=== PATIENT | male | born 1950 | race Caucasian/White ===

== ENCOUNTER → 2017-06-16 | Outpatient (CLI) | payer MEDICARE, OTHER | END | disposition home or self-care (01) | LOC: Rad HDHVI 13:06 | PROVIDERS: ATTEND Internal Medicine Cardiovascular Disease | DX: I42.9 Cardiomyopathy, unspecified (principal) | CPT/HCPCS: 93306 ==

== ENCOUNTER 2019-10-14 08:29 | Inpatient (IN) | payer MEDICARE, MEDICAID ==
[2019-10-14] VITALS (51 sets, daily range): BP systolic 76–153; BP diastolic 32–82
[~2019-10-14] VITALS: Ht 177.8 cm; Wt 92.9 kg
[2019-10-14] MEDS ORDERED: SODIUM CHLORIDE 0.9% 1,000 ML IV ONE ×3 (08:35→10:00)
[2019-10-14] MEDS ORDERED: PIPERACILLIN-TAZOB 3.375GM 100 ML IV ONE (08:45)
[2019-10-14] MEDS ORDERED: MIDAZOLAM DRIP 50 mg/50mL 50 ML IV ONE (08:59)
[2019-10-14] MEDS ORDERED: SUCCINYLCHOLINE CHLORIDE 20 MG/ML 10ML VIAL IV ONE (09:00)
[2019-10-14] MEDS ORDERED: ETOMIDATE (2MG/ML) 20ML VIAL IV ONE (09:00)
[2019-10-14] MEDS: MIDAZOLAM DRIP 50 mg/50mL 50 ML IV SCH (09:30)
[2019-10-14] MEDS ORDERED: NOREPINEPHRINE 8 MG/250ML KIT 250 ML IV ONE (09:38)
[2019-10-14] MEDS ORDERED: SODIUM CHLORIDE 0.9% 500 ML IV ONE (10:00)
[2019-10-14 10:02] LABS: Basophils # (auto) 0 uL; Eosinophils # (auto) 0 uL; Red Cell Distribution Width 17.1 % (11.8-14.3)
[2019-10-14 10:05] LABS: Basophils % (auto) 0.3 % (0.0-2.0); Hematocrit 45.2 % (41.0-53.0); Hemoglobin 14.2 g/dL (13.5-17.5); Lymphocytes # (auto) 0.4 uL; Lymphocytes % (auto) 4.9 % (10.0-50.0); Mean Corpuscular Hemoglobin 25.7 pg (28.0-32.0); Mean Corpuscular Hgb Conc. 31.5 g/dL (32.0-36.0); Mean Corpuscular Volume 81.5 fL (80.0-100.0); Monocytes # (auto) 0.9 uL; Monocytes % (auto) 12.1 % (0.0-12.0); Neutrophils # (auto) 6.4 uL; Neutrophils % (auto) 82.7 % (37.0-80.0); Nucleated Red Blood Cells % 0.5 %; Platelet Count (auto) 157 10^3/uL (140-450); Red Blood Cells 5.54 10^6/uL (4.5-5.90); White Blood Cell 7.7 10^3/uL (4.4-10.8)
[2019-10-14 10:14] LABS: Albumin 3.6 g/dL (3.4-5.0); Anion Gap 28 (5-15); Calcium 6.5 mg/dL (8.5-10.1); Chloride 82 mmol/L (98-107); Glucose 93 mg/dL (74-106)
[2019-10-14 10:15] LABS: INR 1.22 (0.9-1.15); Partial Thromboplastin Time 38.3 sec (23.64-32.05)
[2019-10-14 10:23] LABS: Alanine Aminotransferase 33 U/L (16-61); Alkaline Phosphatase 102 U/L (45-117); Aspartate Aminotransferase 42 U/L (15-37); BUN/Creatinine Ratio 7.2; Bilirubin, Total 0.5 mg/dL (0.2-1.0); GFR African American 3 mL/min; GFR Non-African American 2 mL/min; Total Protein 9.1 g/dL (6.4-8.2)
[2019-10-14] MEDS: NOREPINEPHRINE 8 MG/250ML KIT 250 ML IV SCH ×2 (10:23→21:31)
[2019-10-14 10:41] LABS: Blood Urea Nitrogen 150 mg/dL (7-18); Carbon Dioxide 7 mmol/L (21-32); Potassium 7.9 mmol/L (3.5-5.1); Sodium 117 mmol/L (136-145)
[2019-10-14 10:42] LABS: Urine Amorphous Crystal FEW /hpf (None Seen); Urine Bacteria NONE SEEN /hpf (None Seen); Urine Blood 2+ /uL (Negative); Urine Specific Gravity 1.022 (1.001-1.035); Urine WBC 10 /hpf (0 - 3)
[2019-10-14] MEDS ORDERED: InsuLIN REG 1unit/0.01ml Soln (100units/ml) IV ONE ×3 (10:45→15:00)
[2019-10-14] MEDS ORDERED: SODIUM BICARBONATE 8.4% INJ 50ML SYRINGE IV ONE (10:45)
[2019-10-14] MEDS ORDERED: DEXTROSE (50%) 50ML SYRG IV ONE ×3 (10:45→15:00)
[2019-10-14] MEDS ORDERED: ALBUTEROL SULF 2.5 MG/0.5ML(0.5%) NEB SOLN NEB ONE ×2 (10:45→11:15)
[2019-10-14] MEDS ORDERED: CALCIUM GLUC 4.65meq/50ml D5AE 50 ML IV ONE ×2 (10:45→14:45)
[2019-10-14] MEDS ORDERED: SODIUM CHL 3% 500 ML IV ONE (10:45)
[2019-10-14] MEDS ORDERED: SODIUM ZIRCONIUM CYCL 10 GM PAK PO SCH (10:54)
[2019-10-14] MEDS ORDERED: NITROGLYCERIN 0.4 MG SL TAB SL PRN (11:15)
[2019-10-14] MEDS ORDERED: MORPHINE SULF INJ 2 MG/ML SYRINGE 1ML IV PRN (11:15)
[2019-10-14] MEDS ORDERED: SODIUM BICARBONATE 50ML VIAL 150 ML in D5W 5% 1,000 ML IV ONE (11:15)
[2019-10-14] MEDS ORDERED: SODIUM BICARBONATE 50ML VIAL 150 ML in D5W 5% 1,000 ML IV SCH (12:00)
[2019-10-14 12:05] LABS: Uric Acid 13.9 mg/dL (3.5-7.2)
[2019-10-14 12:53] LABS: Albumin 3.8 g/dL (3.4-5.0); Bilirubin, Total 0.6 mg/dL (0.2-1.0); Calcium 6.5 mg/dL (8.5-10.1); Total Protein 8.7 g/dL (6.4-8.2)
[2019-10-14 13:03] LABS: Protein, Urine 204.2 mg/dL (0.0-11.9)
[2019-10-14 13:15] LABS: BUN/Creatinine Ratio 7.5; Potassium 8.2 mmol/L (3.5-5.1)
[2019-10-14 13:16] LABS: Phosphorus 22.8 mg/dL (2.5-4.90)
[2019-10-14] MEDS: DOPamine 1600MCG/ML D5W 250 ML IV SCH (13:40)
[2019-10-14 13:43] LABS: Hepatitis B Surface Antigen Negative (Negative); Hepatitis C Antibody Negative (Negative)
[2019-10-14] MEDS: FAMOTIDINE (10MG/ML) 2ML VL IV SCH (14:29)
[2019-10-14] MEDS ORDERED: SODIUM BICARBONATE 8.4 % INJ 50ML VIAL IV ONE (14:45)
[2019-10-14] MEDS: SODIUM BICARBONATE 50ML VIAL 150 ML in D5W 5% 1,000 ML IV SCH ×2 (15:00→19:21)
[2019-10-14] MEDS ORDERED: BUMETANIDE 2.5mg/10ml (0.25 mg/ml) INJ IV ONE (15:00)
[2019-10-14 17:55] LABS: Potassium 4.8 mmol/L (3.5-5.1)
[2019-10-14 17:57] LABS: BUN/Creatinine Ratio 8.1
[2019-10-14] MEDS ORDERED: CALCIUM ACETATE 667 MG CAP PO SCH (18:00)
[2019-10-14] MEDS ORDERED: SODIUM CHL 0.9% 1000 ML BAG XX ONE (18:00)
[2019-10-14] MEDS ORDERED: PHENYLEPHRINE INJ 20 MG in SODIUM CHL 0.9% 250 ML IV SCH (18:20)
[2019-10-14] MEDS ORDERED: PHENYLEPHRINE IV 250 ML IV ONE (18:41)
[2019-10-14] MEDS: IPRATROPIUM BROM 0.5 MG/2.5ML INH SOL NEB SCH (18:57)
[2019-10-14] MEDS: ALBUTEROL SULF 2.5 MG/0.5ML(0.5%) NEB SOLN NEB SCH (18:57)
[2019-10-14] MEDS: EPINEPHrine HCL 250 ML IV SCH (19:22)
[2019-10-14] MEDS: PHENYLEPHRINE INJ 20 MG in D5W 5% 250 ML IV SCH (21:31)
[2019-10-14] MEDS: SODIUM ZIRCONIUM CYCL 10 GM PAK PO SCH (22:00)
[2019-10-15] VITALS (96 sets, daily range): BP systolic 80–153; BP diastolic 49–79
[2019-10-15] MEDS: ALBUTEROL SULF 2.5 MG/0.5ML(0.5%) NEB SOLN NEB SCH ×4 (00:11→18:33)
[2019-10-15] MEDS: IPRATROPIUM BROM 0.5 MG/2.5ML INH SOL NEB SCH ×4 (00:11→18:33)
[2019-10-15] MEDS ORDERED: PHENYLEPHRINE IV 250 ML IV ONE ×2 (01:24→08:17)
[2019-10-15] MEDS: PHENYLEPHRINE INJ 20 MG in D5W 5% 250 ML IV SCH ×3 (01:48→21:00)
[2019-10-15] MEDS: NOREPINEPHRINE 8 MG/250ML KIT 250 ML IV SCH ×2 (01:49→23:50)
[2019-10-15 03:48] LABS: Hematocrit 35.8 % (41.0-53.0); Mean Corpuscular Hemoglobin 25.9 pg (28.0-32.0); Mean Corpuscular Hgb Conc. 33.4 g/dL (32.0-36.0); Mean Corpuscular Volume 77.4 fL (80.0-100.0); Platelet Count (auto) 113 10^3/uL (140-450); Red Blood Cells 4.62 10^6/uL (4.5-5.90); Red Cell Distribution Width 15.9 % (11.8-14.3); White Blood Cell 3.2 10^3/uL (4.4-10.8)
[2019-10-15 04:08] LABS: Potassium 3.7 mmol/L (3.5-5.1)
[2019-10-15 04:13] LABS: BUN/Creatinine Ratio 7.3
[2019-10-15 04:35] LABS: Basophils % (manual) 0 (0.0-2.0); Blast Cells 0; Eosinophils % (manual) 0 (0-7); Myelocytes % 0; Promyelocytes % 0; Reactive Lymphocytes 0
[2019-10-15 04:38] LABS: Calcium 5.4 mg/dL (8.5-10.1)
[2019-10-15] MEDS: SODIUM ZIRCONIUM CYCL 10 GM PAK PO SCH ×2 (05:42→13:59)
[2019-10-15] MEDS: MIDAZOLAM DRIP 50 mg/50mL 50 ML IV SCH (05:43)
[2019-10-15] MEDS: SODIUM BICARBONATE 50ML VIAL 150 ML in D5W 5% 1,000 ML IV SCH ×5 (06:14→18:20)
[2019-10-15 06:37] LABS: Band Neutrophils % (manual) 12; Lymphocytes % (manual) 16 (10.0-50.0)
[2019-10-15 06:38] LABS: Metamyelocytes % 1; Monocytes % (manual) 35 (0-12)
[2019-10-15] MEDS ORDERED: CALCIUM ACETATE 667 MG CAP NG SCH (10:15)
[2019-10-15] MEDS ORDERED: CALCIUM GLUC 4.65meq/50ml D5AE 50 ML IV ONE ×4 (10:15→12:30)
[2019-10-15] MEDS: FAMOTIDINE (10MG/ML) 2ML VL IV SCH (10:49)
[2019-10-15] MEDS: CALCIUM ACETATE 667 MG CAP NG SCH ×3 (10:49→21:19)
[2019-10-15] MEDS ORDERED: cefTRIAXone 1GM/50ML D5W 50 ML IV ONE (12:00)
[2019-10-15 12:33] LABS: Alcohol, Urine < 3.0 mg/dL (0-5); Amphetamine Screen, Urine NEGATIVE (NEGATIVE); Barbiturate Scree,Urine NEGATIVE (NEGATIVE); Benzodiazephine Screen, Urine POSITIVE (NEGATIVE); Cannabinoid Screen, Urine NEGATIVE (NEGATIVE); Cocaine Screen, Urine NEGATIVE (NEGATIVE)
[2019-10-15 12:40] LABS: Opiate Scree,Urine NEGATIVE (NEGATIVE); Phencyclidine Screen, Urine NEGATIVE (NEGATIVE)
[2019-10-15] MEDS ORDERED: AZITHROMYCIN 500MG/ 250ML 250 ML IV ONE (13:00)
[2019-10-15] MEDS: fentaNYL Drip 2500mCg/250mlNS 250 ML IV SCH ×2 (13:22→21:38)
[2019-10-15] MEDS: PROPOFOL 100 ML IV SCH (13:22)
[2019-10-15 14:42] LABS: BUN/Creatinine Ratio 7.6
[2019-10-15 14:54] LABS: Calcium 5.4 mg/dL (8.5-10.1)
[2019-10-15] MEDS: POTASSIUM CHL 20MEQ/100ML 100 ML IV SCH ×2 (15:59→18:02)
[2019-10-15] MEDS: EPINEPHrine HCL 250 ML IV SCH (19:22)
[2019-10-15] MEDS: DOPamine 1600MCG/ML D5W 250 ML IV SCH ×2 (19:54→23:50)
[2019-10-15] MEDS: HEPARIN SODIUM (PORCINE) 5000 UNITS/ML 1ML VIAL SC SCH (21:20)
[2019-10-16] VITALS (100 sets, daily range): BP systolic 71–258; BP diastolic 44–200
[2019-10-16] MEDS: IPRATROPIUM BROM 0.5 MG/2.5ML INH SOL NEB SCH ×4 (00:14→19:03)
[2019-10-16] MEDS: ALBUTEROL SULF 2.5 MG/0.5ML(0.5%) NEB SOLN NEB SCH ×4 (00:15→19:03)
[2019-10-16] MEDS: POTASSIUM CHL 20MEQ/100ML 100 ML IV SCH ×6 (00:59→16:45)
[2019-10-16] MEDS: SODIUM BICARBONATE 50ML VIAL 150 ML in D5W 5% 1,000 ML IV SCH (02:17)
[2019-10-16] MEDS: PHENYLEPHRINE INJ 20 MG in D5W 5% 250 ML IV SCH ×3 (05:20→22:00)
[2019-10-16] MEDS: CALCIUM ACETATE 667 MG CAP NG SCH ×4 (05:38→22:00)
[2019-10-16] MEDS: NOREPINEPHRINE 8 MG/250ML KIT 250 ML IV SCH ×2 (05:59→12:51)
[2019-10-16 07:07] LABS: Basophils # (auto) 0 uL; Eosinophils # (auto) 0 uL; Hematocrit 31.9 % (41.0-53.0); Lymphocytes % (auto) 4.8 % (10.0-50.0); Neutrophils # (auto) 7.9 uL; Neutrophils % (auto) 84.2 % (37.0-80.0); Nucleated Red Blood Cells % 0.1 %; Red Cell Distribution Width 15.1 % (11.8-14.3)
[2019-10-16 07:10] LABS: Hemoglobin 10.7 g/dL (13.5-17.5); Lymphocytes # (auto) 0.5 uL; Mean Corpuscular Hgb Conc. 33.7 g/dL (32.0-36.0); Mean Corpuscular Volume 77.1 fL (80.0-100.0); Platelet Count (auto) 96 10^3/uL (140-450); Red Blood Cells 4.13 10^6/uL (4.5-5.90); White Blood Cell 9.4 10^3/uL (4.4-10.8)
[2019-10-16 07:15] LABS: Magnesium 1.7 mg/dL (1.6-2.6); Potassium 3.1 mmol/L (3.5-5.1)
[2019-10-16 07:17] LABS: Bilirubin, Total 0.5 mg/dL (0.2-1.0); Phosphorus 4.2 mg/dL (2.5-4.90); Total Protein 5.9 g/dL (6.4-8.2)
[2019-10-16 07:34] LABS: Calcium 5.9 mg/dL (8.5-10.1)
[2019-10-16] MEDS ORDERED: D5W/SOD CHLO 0.9% 1,000 ML IV ONE (08:15)
[2019-10-16] MEDS ORDERED: CALCIUM CHL 100MG/ML 1,000 MG in D5W 5% 100 ML IV ONE ×4 (08:15)
[2019-10-16] MEDS ORDERED: cefTRIAXone 1GM/50ML D5W 50 ML IV SCH (09:00)
[2019-10-16] MEDS: MAGNESIUM SULFATE 1GM/100ML 100 ML IV SCH ×2 (09:03→09:50)
[2019-10-16] MEDS: D5W/SOD CHLO 0.9% 1,000 ML IV SCH ×3 (09:30→18:26)
[2019-10-16] MEDS: MIDAZOLAM DRIP 50 mg/50mL 50 ML IV SCH (09:33)
[2019-10-16] MEDS: FAMOTIDINE (10MG/ML) 2ML VL IV SCH (09:50)
[2019-10-16] MEDS ORDERED: AZITHROMYCIN 500MG/ 250ML 250 ML IV SCH (10:00)
[2019-10-16 10:29] LABS: Uric Acid 7.5 mg/dL (3.5-7.2)
[2019-10-16] MEDS: CHOLECALCIFEROL (VITD3) 1,000IU=25mCg TAB NG SCH (11:02)
[2019-10-16] MEDS: HEPARIN SODIUM (PORCINE) 5000 UNITS/ML 1ML VIAL SC SCH ×2 (12:04→22:35)
[2019-10-16] MEDS ORDERED: Nepro With Carb Steady 1 Liter Bottle GT SCH (12:30)
[2019-10-16] MEDS: PROPOFOL 100 ML IV SCH (13:22)
[2019-10-16] MEDS: DexMEDEtomidine 400 MCG in D5W 5% 96 ML IV SCH (13:43)
[2019-10-16] MEDS: LEVOFLOXACIN 250MG 50 ML IV SCH (13:57)
[2019-10-16] MEDS ORDERED: ceFAZolin 1GM/50ML 50 ML IV SCH (14:00)
[2019-10-16] MEDS: fentaNYL Drip 2500mCg/250mlNS 250 ML IV SCH (14:01)
[2019-10-16] MEDS: LINEZOLID 600MG/300ML 300 ML IV SCH ×2 (16:45→22:35)
[2019-10-16] MEDS: EPINEPHrine HCL 250 ML IV SCH (19:22)
[2019-10-16] MEDS: MUPIROCIN 2% OINT 15gm or 22gm EACHNOSTRI SCH (22:35)
[2019-10-17] VITALS (99 sets, daily range): BP systolic 93–164; BP diastolic 55–94
[2019-10-17] MEDS: ALBUTEROL SULF 2.5 MG/0.5ML(0.5%) NEB SOLN NEB SCH ×4 (00:36→18:36)
[2019-10-17] MEDS: IPRATROPIUM BROM 0.5 MG/2.5ML INH SOL NEB SCH ×4 (00:36→18:35)
[2019-10-17 03:45] LABS: Basophils # (auto) 0 uL; Basophils % (auto) 0.1 % (0.0-2.0); Eosinophils # (auto) 0 uL; Eosinophils % (auto) 0.2 % (0.0-7.0); Hematocrit 30.1 % (41.0-53.0); Hemoglobin 10.1 g/dL (13.5-17.5); Lymphocytes # (auto) 0.5 uL; Mean Corpuscular Hemoglobin 26.4 pg (28.0-32.0); Mean Corpuscular Hgb Conc. 33.6 g/dL (32.0-36.0); Mean Corpuscular Volume 78.6 fL (80.0-100.0); Monocytes # (auto) 1.3 uL; Monocytes % (auto) 13.2 % (0.0-12.0); Neutrophils # (auto) 7.9 uL; Neutrophils % (auto) 81.5 % (37.0-80.0); Nucleated Red Blood Cells % 0.1 %; Platelet Count (auto) 95 10^3/uL (140-450); Red Blood Cells 3.83 10^6/uL (4.5-5.90); White Blood Cell 9.8 10^3/uL (4.4-10.8)
[2019-10-17 04:02] LABS: Albumin 1.7 g/dL (3.4-5.0); Calcium 6.1 mg/dL (8.5-10.1); Potassium 3.5 mmol/L (3.5-5.1)
[2019-10-17 04:05] LABS: BUN/Creatinine Ratio 11.3; Bilirubin, Total 0.3 mg/dL (0.2-1.0); Total Protein 5.7 g/dL (6.4-8.2)
[2019-10-17] MEDS: DOPamine 1600MCG/ML D5W 250 ML IV SCH (04:17)
[2019-10-17] MEDS: D5W/SOD CHLO 0.9% 1,000 ML IV SCH ×2 (04:17→17:35)
[2019-10-17] MEDS: fentaNYL Drip 2500mCg/250mlNS 250 ML IV SCH (04:18)
[2019-10-17] MEDS: NOREPINEPHRINE 8 MG/250ML KIT 250 ML IV SCH (04:18)
[2019-10-17] MEDS: PHENYLEPHRINE INJ 20 MG in D5W 5% 250 ML IV SCH ×3 (06:20→23:00)
[2019-10-17] MEDS: CALCIUM ACETATE 667 MG CAP NG SCH ×4 (08:23→22:00)
[2019-10-17] MEDS: MIDAZOLAM DRIP 50 mg/50mL 50 ML IV SCH (09:33)
[2019-10-17] MEDS: LEVOFLOXACIN 250MG 50 ML IV SCH (09:34)
[2019-10-17] MEDS: FAMOTIDINE (10MG/ML) 2ML VL IV SCH (09:38)
[2019-10-17] MEDS: LINEZOLID 600MG/300ML 300 ML IV SCH ×2 (09:39→22:00)
[2019-10-17] MEDS: HEPARIN SODIUM (PORCINE) 5000 UNITS/ML 1ML VIAL SC SCH (09:39)
[2019-10-17] MEDS: MUPIROCIN 2% OINT 15gm or 22gm EACHNOSTRI SCH ×2 (10:54→22:00)
[2019-10-17] MEDS: CHOLECALCIFEROL (VITD3) 1,000IU=25mCg TAB NG SCH (10:55)
[2019-10-17] MEDS: DexMEDEtomidine 400 MCG in D5W 5% 96 ML IV SCH ×2 (10:55→16:35)
[2019-10-17] MEDS: PROPOFOL 100 ML IV SCH (13:22)
[2019-10-17] MEDS ORDERED: POTASSIUM CHL 20MEQ/100ML 100 ML IV ONE (14:50)
[2019-10-17] MEDS ORDERED: CALCIUM GLUC 4.65meq/50ml D5AE 50 ML IV ONE ×2 (15:00→15:15)
[2019-10-17] MEDS: POTASSIUM CHL 20MEQ/100ML 100 ML IV SCH ×3 (15:20→18:47)
[2019-10-17] MEDS: acetaZOLAMIDE SODIUM 500 MG VL IV SCH ×2 (15:55→22:00)
[2019-10-17] MEDS: EPINEPHrine HCL 250 ML IV SCH (19:22)
[2019-10-18] VITALS (80 sets, daily range): BP systolic 84–173; BP diastolic 49–100
[2019-10-18] MEDS: HEPARIN SODIUM (PORCINE) 5000 UNITS/ML 1ML VIAL SC SCH ×3 (00:24→21:39)
[2019-10-18] MEDS: IPRATROPIUM BROM 0.5 MG/2.5ML INH SOL NEB SCH ×4 (00:25→18:49)
[2019-10-18] MEDS: ALBUTEROL SULF 2.5 MG/0.5ML(0.5%) NEB SOLN NEB SCH ×4 (00:25→18:49)
[2019-10-18 04:34] LABS: Basophils # (auto) 0 uL; Eosinophils # (auto) 0.1 uL; Lymphocytes # (auto) 0.3 uL; Monocytes # (auto) 0.8 uL; Neutrophils # (auto) 6.8 uL; Red Blood Cells 3.93 10^6/uL (4.5-5.90); Red Cell Distribution Width 15.1 % (11.8-14.3)
[2019-10-18 04:36] LABS: Basophils % (auto) 0.2 % (0.0-2.0); Eosinophils % (auto) 0.9 % (0.0-7.0); Hematocrit 31.4 % (41.0-53.0); Lymphocytes % (auto) 4.3 % (10.0-50.0); Mean Corpuscular Hemoglobin 25.6 pg (28.0-32.0); Mean Corpuscular Hgb Conc. 31.9 g/dL (32.0-36.0); Mean Corpuscular Volume 80.1 fL (80.0-100.0); Monocytes % (auto) 10.3 % (0.0-12.0); Neutrophils % (auto) 84.3 % (37.0-80.0); Nucleated Red Blood Cells % 0.2 %; Platelet Count (auto) 113 10^3/uL (140-450)
[2019-10-18 04:58] LABS: Albumin 1.7 g/dL (3.4-5.0); BUN/Creatinine Ratio 11.4; Calcium 6.9 mg/dL (8.5-10.1)
[2019-10-18 05:01] LABS: Bilirubin, Total 0.4 mg/dL (0.2-1.0); Potassium 2.9 mmol/L (3.5-5.1); Total Protein 5.9 g/dL (6.4-8.2)
[2019-10-18] MEDS: CALCIUM ACETATE 667 MG CAP NG SCH ×2 (06:12→16:31)
[2019-10-18] MEDS ORDERED: POTASSIUM CHL 20MEQ/100ML 100 ML IV ONE ×2 (07:52→14:30)
[2019-10-18] MEDS: POTASSIUM CHL 20MEQ/100ML 100 ML IV SCH ×2 (08:00→10:07)
[2019-10-18] MEDS: NOREPINEPHRINE 8 MG/250ML KIT 250 ML IV SCH (10:00)
[2019-10-18] MEDS: D5W/SOD CHLO 0.9% 1,000 ML IV SCH ×4 (10:06→23:45)
[2019-10-18] MEDS: PHENYLEPHRINE INJ 20 MG in D5W 5% 250 ML IV SCH ×2 (10:07→15:40)
[2019-10-18] MEDS: LINEZOLID 600MG/300ML 300 ML IV SCH ×2 (11:00→21:38)
[2019-10-18] MEDS ORDERED: D5W/SOD CHLO 0.9% 1,000 ML IV SCH (11:00)
[2019-10-18] MEDS: FAMOTIDINE (10MG/ML) 2ML VL IV SCH (12:01)
[2019-10-18] MEDS: CHOLECALCIFEROL (VITD3) 1,000IU=25mCg TAB NG SCH (12:01)
[2019-10-18] MEDS: MUPIROCIN 2% OINT 15gm or 22gm EACHNOSTRI SCH ×2 (12:02→21:40)
[2019-10-18] MEDS: LEVOFLOXACIN 250MG 50 ML IV SCH (13:00)
[2019-10-18] MEDS: PROPOFOL 100 ML IV SCH (13:22)
[2019-10-18] MEDS ORDERED: SODIUM CHLORIDE LOCK 0 ML ONE (13:46)
[2019-10-18] MEDS ORDERED: BENZOCAINE (DENTAL) 20 % SPRAY 60ML MT ONE (13:46)
[2019-10-18] MEDS ORDERED: LIDOCAINE HCL 2% TOP JELLY 5ML TOP ONE (13:47)
[2019-10-18] MEDS ORDERED: EPINEPHrine HCL 1 MG/1 ML AMP ONE (13:47)
[2019-10-18] MEDS ORDERED: MIDAZOLAM HCL 5 MG/ML-1ML VIAL ONE (13:47)
[2019-10-18] MEDS ORDERED: fentaNYL CITRATE 100 MCG/2 ML VL ONE (13:49)
[2019-10-18] MEDS ORDERED: LIDOCAINE 2%HCL (LOCAL ANESTH.) INJ 20ML MDV ONE (13:49)
[2019-10-18] MEDS ORDERED: GLYCOPYRROLATE 0.2 MG/ML 1ML VIAL ONE (14:50)
[2019-10-18 15:08] LABS: INR 1.07 (0.9-1.15); Partial Thromboplastin Time 32.2 sec (23.64-32.05)
[2019-10-18] MEDS: acetaZOLAMIDE SODIUM 500 MG VL IV SCH ×2 (16:31→21:38)
[2019-10-18] MEDS: EPINEPHrine HCL 250 ML IV SCH (19:22)
[2019-10-18] MEDS: fentaNYL Drip 2500mCg/250mlNS 250 ML IV SCH (21:41)
[2019-10-19] VITALS (74 sets, daily range): BP systolic 89–164; BP diastolic 38–90
[2019-10-19] MEDS: ALBUTEROL SULF 2.5 MG/0.5ML(0.5%) NEB SOLN NEB SCH ×3 (00:15→13:30)
[2019-10-19] MEDS: IPRATROPIUM BROM 0.5 MG/2.5ML INH SOL NEB SCH ×3 (00:15→13:30)
[2019-10-19] MEDS: CALCIUM ACETATE 667 MG CAP NG SCH ×4 (00:21→21:31)
[2019-10-19 03:59] LABS: Basophils # (auto) 0 uL; Eosinophils # (auto) 0.1 uL; Hemoglobin 9.3 g/dL (13.5-17.5); Monocytes # (auto) 1.2 uL; Nucleated Red Blood Cells % 0.1 %
[2019-10-19 04:01] LABS: Basophils % (auto) 0.2 % (0.0-2.0); Hematocrit 29.6 % (41.0-53.0); Lymphocytes # (auto) 0.7 uL; Lymphocytes % (auto) 7.5 % (10.0-50.0); Mean Corpuscular Hemoglobin 25.4 pg (28.0-32.0); Mean Corpuscular Hgb Conc. 31.5 g/dL (32.0-36.0); Mean Corpuscular Volume 80.5 fL (80.0-100.0); Neutrophils % (auto) 78.3 % (37.0-80.0); Platelet Count (auto) 122 10^3/uL (140-450); Red Blood Cells 3.67 10^6/uL (4.5-5.90); Red Cell Distribution Width 15.1 % (11.8-14.3); White Blood Cell 8.9 10^3/uL (4.4-10.8)
[2019-10-19] MEDS: DexMEDEtomidine 400 MCG in D5W 5% 96 ML IV SCH ×2 (04:02→08:00)
[2019-10-19 04:17] LABS: Albumin 1.6 g/dL (3.4-5.0); Calcium 7.2 mg/dL (8.5-10.1); Potassium 3.2 mmol/L (3.5-5.1)
[2019-10-19 04:20] LABS: Bilirubin, Total 0.4 mg/dL (0.2-1.0)
[2019-10-19] MEDS: POTASSIUM CHL 20MEQ/100ML 100 ML IV SCH ×4 (04:51→11:56)
[2019-10-19] MEDS: DOPamine 1600MCG/ML D5W 250 ML IV SCH ×2 (06:03→12:00)
[2019-10-19] MEDS: PHENYLEPHRINE INJ 20 MG in D5W 5% 250 ML IV SCH ×4 (08:20→16:40)
[2019-10-19] MEDS: LEVOFLOXACIN 250MG 50 ML IV SCH (08:41)
[2019-10-19] MEDS: LINEZOLID 600MG/300ML 300 ML IV SCH ×2 (09:32→21:32)
[2019-10-19] MEDS: D5W/SOD CHLO 0.9% 1,000 ML IV SCH (09:32)
[2019-10-19] MEDS: FAMOTIDINE (10MG/ML) 2ML VL IV SCH (09:32)
[2019-10-19] MEDS: MUPIROCIN 2% OINT 15gm or 22gm EACHNOSTRI SCH ×2 (09:32→21:32)
[2019-10-19] MEDS: HEPARIN SODIUM (PORCINE) 5000 UNITS/ML 1ML VIAL SC SCH ×2 (09:33→21:31)
[2019-10-19] MEDS: NOREPINEPHRINE 8 MG/250ML KIT 250 ML IV SCH (10:00)
[2019-10-19] MEDS: CHOLECALCIFEROL (VITD3) 1,000IU=25mCg TAB NG SCH (12:25)
[2019-10-19] MEDS: PROPOFOL 100 ML IV SCH (13:22)
[2019-10-19] MEDS: fentaNYL Drip 2500mCg/250mlNS 250 ML IV SCH (13:22)
[2019-10-19] MEDS: D5W/SOD CHL 0.45% 1,000 ML IV SCH (17:51)
[2019-10-20] VITALS (46 sets, daily range): BP systolic 106–166; BP diastolic 56–84
[2019-10-20] MEDS: IPRATROPIUM BROM 0.5 MG/2.5ML INH SOL NEB SCH ×4 (00:16→18:10)
[2019-10-20] MEDS: ALBUTEROL SULF 2.5 MG/0.5ML(0.5%) NEB SOLN NEB SCH ×4 (00:16→18:10)
[2019-10-20 04:09] LABS: Basophils # (auto) 0 uL; Basophils % (auto) 0.2 % (0.0-2.0); Eosinophils # (auto) 0.1 uL; Hemoglobin 9.3 g/dL (13.5-17.5); Lymphocytes # (auto) 0.6 uL; Monocytes # (auto) 1.1 uL; Neutrophils # (auto) 6.2 uL
[2019-10-20 04:14] LABS: Eosinophils % (auto) 0.9 % (0.0-7.0); Hematocrit 29.1 % (41.0-53.0); Lymphocytes % (auto) 7.4 % (10.0-50.0); Mean Corpuscular Hemoglobin 25.8 pg (28.0-32.0); Mean Corpuscular Volume 80.6 fL (80.0-100.0); Monocytes % (auto) 13.8 % (0.0-12.0); Neutrophils % (auto) 77.7 % (37.0-80.0); Nucleated Red Blood Cells % 0.1 %; Platelet Count (auto) 127 10^3/uL (140-450); Red Blood Cells 3.61 10^6/uL (4.5-5.90); Red Cell Distribution Width 15.3 % (11.8-14.3)
[2019-10-20 04:31] LABS: Potassium 3.6 mmol/L (3.5-5.1)
[2019-10-20 04:41] LABS: Albumin 1.6 g/dL (3.4-5.0); BUN/Creatinine Ratio 12.7; Bilirubin, Total 0.5 mg/dL (0.2-1.0); Calcium 7.2 mg/dL (8.5-10.1); Total Protein 5.9 g/dL (6.4-8.2)
[2019-10-20] MEDS: CALCIUM ACETATE 667 MG CAP NG SCH ×3 (06:00→21:48)
[2019-10-20] MEDS: PHENYLEPHRINE INJ 20 MG in D5W 5% 250 ML IV SCH ×2 (07:24→17:15)
[2019-10-20] MEDS: D5W/SOD CHL 0.45% 1,000 ML IV SCH ×2 (07:24→17:15)
[2019-10-20] MEDS: EPINEPHrine HCL 250 ML IV SCH (07:24)
[2019-10-20] MEDS: CHOLECALCIFEROL (VITD3) 1,000IU=25mCg TAB NG SCH (09:28)
[2019-10-20] MEDS: MUPIROCIN 2% OINT 15gm or 22gm EACHNOSTRI SCH ×2 (09:28→21:48)
[2019-10-20] MEDS: NOREPINEPHRINE 8 MG/250ML KIT 250 ML IV SCH (09:28)
[2019-10-20] MEDS: LEVOFLOXACIN 250MG 50 ML IV SCH (09:41)
[2019-10-20] MEDS: FAMOTIDINE (10MG/ML) 2ML VL IV SCH (09:41)
[2019-10-20] MEDS: HEPARIN SODIUM (PORCINE) 5000 UNITS/ML 1ML VIAL SC SCH ×2 (09:42→21:48)
[2019-10-20] MEDS: LINEZOLID 600MG/300ML 300 ML IV SCH ×2 (11:13→21:48)
[2019-10-20] MEDS: fentaNYL Drip 2500mCg/250mlNS 250 ML IV SCH (11:19)
[2019-10-20] MEDS: PROPOFOL 100 ML IV SCH (11:19)
[2019-10-21] VITALS (41 sets, daily range): BP systolic 111–157; BP diastolic 72–91
[2019-10-21] MEDS: ALBUTEROL SULF 2.5 MG/0.5ML(0.5%) NEB SOLN NEB SCH ×4 (00:03→18:55)
[2019-10-21] MEDS: IPRATROPIUM BROM 0.5 MG/2.5ML INH SOL NEB SCH ×4 (00:03→18:55)
[2019-10-21 04:03] LABS: Basophils # (auto) 0 uL; Basophils % (auto) 0.3 % (0.0-2.0); Eosinophils # (auto) 0.2 uL; Eosinophils % (auto) 2.5 % (0.0-7.0); Monocytes # (auto) 0.9 uL; Neutrophils % (auto) 71.7 % (37.0-80.0)
[2019-10-21 04:07] LABS: Hematocrit 28.9 % (41.0-53.0); Hemoglobin 9.3 g/dL (13.5-17.5); Lymphocytes # (auto) 0.8 uL; Mean Corpuscular Hemoglobin 25.6 pg (28.0-32.0); Mean Corpuscular Hgb Conc. 32.2 g/dL (32.0-36.0); Mean Corpuscular Volume 79.5 fL (80.0-100.0); Monocytes % (auto) 13.5 % (0.0-12.0); Neutrophils # (auto) 4.8 uL; Platelet Count (auto) 144 10^3/uL (140-450); Red Blood Cells 3.63 10^6/uL (4.5-5.90); White Blood Cell 6.7 10^3/uL (4.4-10.8)
[2019-10-21] MEDS: DexMEDEtomidine 400 MCG in D5W 5% 96 ML IV SCH (04:38)
[2019-10-21] MEDS ORDERED: metroNIDAZOLE 500MG/100ML 100 ML IV ONE (05:43)
[2019-10-21] MEDS: CALCIUM ACETATE 667 MG CAP NG SCH ×3 (06:00→21:34)
[2019-10-21] MEDS: D5W/SOD CHL 0.45% 1,000 ML IV SCH (06:30)
[2019-10-21] MEDS: PHENYLEPHRINE INJ 20 MG in D5W 5% 250 ML IV SCH (07:46)
[2019-10-21] MEDS: LINEZOLID 600MG/300ML 300 ML IV SCH ×2 (09:53→21:34)
[2019-10-21] MEDS: FAMOTIDINE (10MG/ML) 2ML VL IV SCH (09:53)
[2019-10-21] MEDS: LEVOFLOXACIN 250MG 50 ML IV SCH (09:53)
[2019-10-21] MEDS: NOREPINEPHRINE 8 MG/250ML KIT 250 ML IV SCH (10:00)
[2019-10-21] MEDS: HEPARIN SODIUM (PORCINE) 5000 UNITS/ML 1ML VIAL SC SCH ×2 (10:00→21:35)
[2019-10-21] MEDS: MUPIROCIN 2% OINT 15gm or 22gm EACHNOSTRI SCH ×2 (10:02→21:34)
[2019-10-21] MEDS: CHOLECALCIFEROL (VITD3) 1,000IU=25mCg TAB NG SCH (10:14)
[2019-10-21] MEDS: fentaNYL Drip 2500mCg/250mlNS 250 ML IV SCH (11:42)
[2019-10-21] MEDS: PROPOFOL 100 ML IV SCH (11:42)
[2019-10-21] MEDS ORDERED: FUROSEMIDE 40 MG/4 ML VIAL IV ONE (11:45)
[2019-10-21] MEDS ORDERED: methylPREDNISolone SOD SUCC 40 MG/ML VL IV ONE (12:00)
[2019-10-21] MEDS: BUDESONIDE (INHALATION) 0.5 MG/2 ML NEB NEB SCH (18:56)
[2019-10-21] MEDS: ZOLPIDEM TARTRATE 5 MG TAB PO PRN (21:08)
[2019-10-22] MEDS: ALBUTEROL SULF 2.5 MG/0.5ML(0.5%) NEB SOLN NEB SCH ×4 (00:31→19:01)
[2019-10-22] MEDS: IPRATROPIUM BROM 0.5 MG/2.5ML INH SOL NEB SCH ×4 (00:31→19:01)
[2019-10-22 04:01] VITALS: BP 155/89
[2019-10-22] MEDS: CALCIUM ACETATE 667 MG CAP NG SCH (04:45)
[2019-10-22 05:49] LABS: Basophils # (auto) 0 uL; Basophils % (auto) 0.1 % (0.0-2.0); Eosinophils # (auto) 0 uL; Hemoglobin 10.3 g/dL (13.5-17.5); Monocytes # (auto) 0.5 uL; Neutrophils # (auto) 5.3 uL
[2019-10-22 05:53] LABS: Hematocrit 31.9 % (41.0-53.0); Lymphocytes # (auto) 0.6 uL; Lymphocytes % (auto) 9.1 % (10.0-50.0); Mean Corpuscular Hemoglobin 25.7 pg (28.0-32.0); Mean Corpuscular Hgb Conc. 32.3 g/dL (32.0-36.0); Mean Corpuscular Volume 79.6 fL (80.0-100.0); Neutrophils % (auto) 82.8 % (37.0-80.0); Platelet Count (auto) 162 10^3/uL (140-450); Red Cell Distribution Width 15.5 % (11.8-14.3); White Blood Cell 6.4 10^3/uL (4.4-10.8)
[2019-10-22 06:06] LABS: Calcium 8.2 mg/dL (8.5-10.1); Potassium 4.1 mmol/L (3.5-5.1)
[2019-10-22] MEDS: BUDESONIDE (INHALATION) 0.5 MG/2 ML NEB NEB SCH ×2 (06:56→19:01)
[2019-10-22 08:00] VITALS: BP 151/81
[2019-10-22] MEDS ORDERED: LEVOFLOXACIN 250 MG TAB PO SCH (10:00)
[2019-10-22] MEDS: LINEZOLID 600MG TABLET PO SCH ×2 (10:34→21:21)
[2019-10-22] MEDS: methylPREDNISolone SOD SUCC 40 MG/ML VL IV SCH (10:34)
[2019-10-22] MEDS: CHOLECALCIFEROL (VITD3) 1,000IU=25mCg TAB PO SCH (10:34)
[2019-10-22] MEDS: MUPIROCIN 2% OINT 15gm or 22gm EACHNOSTRI SCH ×2 (10:37→21:21)
[2019-10-22] MEDS: HEPARIN SODIUM (PORCINE) 5000 UNITS/ML 1ML VIAL SC SCH ×2 (10:37→21:33)
[2019-10-22 12:00] VITALS: BP 135/82
[2019-10-22] MEDS: DIAZEPAM 2 MG TAB PO PRN (16:21)
[2019-10-22 16:50] VITALS: BP 142/85
[2019-10-22] MEDS: ZOLPIDEM TARTRATE 5 MG TAB PO PRN (21:33)
[2019-10-22 22:00] VITALS: BP 111/63
[2019-10-23] MEDS: IPRATROPIUM BROM 0.5 MG/2.5ML INH SOL NEB SCH ×3 (00:43→11:36)
[2019-10-23] MEDS: ALBUTEROL SULF 2.5 MG/0.5ML(0.5%) NEB SOLN NEB SCH ×3 (00:43→11:36)
[2019-10-23 05:00] VITALS: BP 131/75
[2019-10-23] MEDS: DIAZEPAM 2 MG TAB PO PRN (06:09)
[2019-10-23] MEDS: BUDESONIDE (INHALATION) 0.5 MG/2 ML NEB NEB SCH (06:31)
[2019-10-23 07:25] LABS: BUN/Creatinine Ratio 21.2; Calcium 8.3 mg/dL (8.5-10.1); Potassium 4.3 mmol/L (3.5-5.1)
[2019-10-23 09:00] VITALS: BP 130/76
[2019-10-23] MEDS: MUPIROCIN 2% OINT 15gm or 22gm EACHNOSTRI SCH (09:23)
[2019-10-23] MEDS: methylPREDNISolone SOD SUCC 40 MG/ML VL IV SCH (09:24)
[2019-10-23] MEDS: LINEZOLID 600MG TABLET PO SCH (09:25)
[2019-10-23] MEDS: CHOLECALCIFEROL (VITD3) 1,000IU=25mCg TAB PO SCH (09:25)
[2019-10-23] MEDS: HEPARIN SODIUM (PORCINE) 5000 UNITS/ML 1ML VIAL SC SCH (09:30)
[2019-10-23] MEDS ORDERED: PRED20TA2 PO (09:45)
[2019-10-23] MEDS ORDERED: LEVO-28 PO (09:45)
[2019-10-23] MEDS ORDERED: LEVOFLOXACIN 500 MG TAB PO SCH (10:00)
[2019-10-23 13:00] VITALS: BP 130/81
== END 2019-10-23 15:45 | DRG 870 ==
LOC: EDBD 08:29 → ER 08:31 → TELE 08:32 → ICU WEST 13:02 → DOU IN ICU 10-21 22:50 → TELE-WESTW 10-22 15:14
PROVIDERS: ADMIT Nurse Practitioner Acute Care; ATTEND Internal Medicine
PROC: 5A1D70Z Performance of Urinary Filtration, Intermittent, Less than 6 Hours Per Day (ICD-10-PCS; principal; 2019-10-14)
PROC: 02HV33Z Insertion of Infusion Device into Superior Vena Cava, Percutaneous Approach (ICD-10-PCS; 2019-10-14)
PROC: B548ZZA Ultrasonography of Superior Vena Cava, Guidance (ICD-10-PCS; 2019-10-14)
PROC: 5A1955Z Respiratory Ventilation, Greater than 96 Consecutive Hours (ICD-10-PCS; 2019-10-14)
PROC: 0BH17EZ Insertion of Endotracheal Airway into Trachea, Via Natural or Artificial Opening (ICD-10-PCS; 2019-10-14)
PROC: 0DH63UZ Insertion of Feeding Device into Stomach, Percutaneous Approach (ICD-10-PCS; 2019-10-15)
PROC: 0B938ZZ Drainage of Right Main Bronchus, Via Natural or Artificial Opening Endoscopic (ICD-10-PCS; 2019-10-18)
PROC: 5A09357 Assistance with Respiratory Ventilation, Less than 24 Consecutive Hours, Continuous Positive Airway Pressure (ICD-10-PCS; 2019-10-19)
PROC: 5A09357 Assistance with Respiratory Ventilation, Less than 24 Consecutive Hours, Continuous Positive Airway Pressure (ICD-10-PCS; 2019-10-20)
PROC: 5A09357 Assistance with Respiratory Ventilation, Less than 24 Consecutive Hours, Continuous Positive Airway Pressure (ICD-10-PCS; 2019-10-21)
DX: A41.9 Sepsis, unspecified organism (principal); G93.41 Metabolic encephalopathy; R65.21 Severe sepsis with septic shock; N17.0 Acute kidney failure with tubular necrosis; J96.01 Acute respiratory failure with hypoxia; J15.212 Pneumonia due to Methicillin resistant Staphylococcus aureus; J15.5 Pneumonia due to Escherichia coli; J69.0 Pneumonitis due to inhalation of food and vomit; J98.11 Atelectasis; J45.901 Unspecified asthma with (acute) exacerbation; E87.2 Acidosis; E87.1 Hypo-osmolality and hyponatremia; J44.0 Chronic obstructive pulmonary disease with (acute) lower respiratory infection; J44.1 Chronic obstructive pulmonary disease with (acute) exacerbation; E87.5 Hyperkalemia; Z93.3 Colostomy status; E86.0 Dehydration; E55.9 Vitamin D deficiency, unspecified; E83.42 Hypomagnesemia; E87.6 Hypokalemia; D64.9 Anemia, unspecified; N18.3 Chronic kidney disease, stage 3 (moderate); Z88.5 Allergy status to narcotic agent
CPT/HCPCS: 31500; 36415; 36556; 36600; 70450; 71045; 76775; 80048; 80053; 80307; 81001; 82150; 82306; 82550; 82570; 82805; 82962; 83605; 83690; 83735; 83880; 83930; 83935; 83970; 84100; 84132; 84156; 84300; 84484; 84550; 85007; 85025; 85027; 85379; 85610; 85730; 86803; 87040; 87070; 87077; 87081; 87086; 87186; 87205; 87340; 90935; 92610; 93005; 93306; 94002; 94003; 94640; 94644; 94660; 96365; 96367; 96375; 99291; G0378; J0171; J0330; J0610; J0696; J1642; J1815; J2250; J2543; J3480; J3490; J7042; J7060

== ENCOUNTER 2019-12-30 06:29 | Inpatient (IN) | payer MEDICARE, MEDICAID ==
[2019-12-30] VITALS (8 sets, daily range): BP systolic 97–151; BP diastolic 68–85
[~2019-12-30] VITALS: Ht 175.3 cm; Wt 82.0 kg
[~2019-12-30 06:29] MED LIST: LEVO-28 PO; PRED20TA2 PO
[2019-12-30] MEDS ORDERED: ETOMIDATE (2MG/ML) 20ML VIAL IV ONE ×2 (07:48→08:45)
[2019-12-30] MEDS ORDERED: SUCCINYLCHOLINE CHLORIDE 20 MG/ML 10ML VIAL IV ONE ×2 (07:48→08:45)
[2019-12-30] MEDS ORDERED: MIDAZOLAM DRIP 50 mg/50mL 50 ML IV ONE (07:55)
[2019-12-30] MEDS ORDERED: AMIODARONE HCL (50 MG/ ML) 3 ML VIAL IV ONE (08:21)
[2019-12-30] MEDS ORDERED: DOPamine 1600MCG/ML D5W 250 ML IV ONE ×3 (08:25→22:55)
[2019-12-30] MEDS ORDERED: SODIUM BICARBONATE 8.4 % INJ 50ML VIAL IV ONE ×3 (08:33→12:45)
[2019-12-30] MEDS ORDERED: SODIUM CHLORIDE 0.9% 1,000 ML IV ONE ×2 (08:38)
[2019-12-30] MEDS: MIDAZOLAM DRIP 50 mg/50mL 50 ML IV SCH ×2 (08:39→23:01)
[2019-12-30] MEDS ORDERED: PIPERACILLIN-TAZOB 3.375GM 100 ML IV ONE (08:45)
[2019-12-30] MEDS ORDERED: SODIUM BICARBONATE 50ML VIAL 50 ML, SODIUM BICARBONATE 50ML VIAL 50 ML, SODIUM BICARBON... IV ONE ×2 (08:45)
[2019-12-30] MEDS ORDERED: NOREPINEPHRINE 8 MG/250ML KIT 250 ML IV ONE (08:48)
[2019-12-30 08:54] LABS: Basophils # (auto) 0 uL; Basophils % (auto) 0.5 % (0.0-2.0); Eosinophils # (auto) 0 uL; Lymphocytes # (auto) 0.9 uL; Lymphocytes % (auto) 12.5 % (10.0-50.0); Monocytes # (auto) 0.7 uL
[2019-12-30 08:56] LABS: Eosinophils % (auto) 0.1 % (0.0-7.0); Hematocrit 41.5 % (41.0-53.0); Hemoglobin 13.1 g/dL (13.5-17.5); Mean Corpuscular Hemoglobin 25.7 pg (28.0-32.0); Mean Corpuscular Hgb Conc. 31.7 g/dL (32.0-36.0); Mean Corpuscular Volume 81.1 fL (80.0-100.0); Monocytes % (auto) 10.1 % (0.0-12.0); Neutrophils # (auto) 5.4 uL; Neutrophils % (auto) 76.8 % (37.0-80.0); Nucleated Red Blood Cells % 0.2 %; Platelet Count (auto) 403 10^3/uL (140-450); Red Blood Cells 5.11 10^6/uL (4.5-5.90); Red Cell Distribution Width 17.1 % (11.8-14.3)
[2019-12-30 09:13] LABS: INR 1.89 (0.9-1.15); Partial Thromboplastin Time 28.5 sec (23.64-32.05)
[2019-12-30 09:23] LABS: Alanine Aminotransferase 41 U/L (16-61); Albumin 3.6 g/dL (3.4-5.0); Anion Gap 21 (5-15); Aspartate Aminotransferase 48 U/L (15-37); BUN/Creatinine Ratio 8.5; Calcium 7.3 mg/dL (8.5-10.1); Carbon Dioxide 10 mmol/L (21-32); Chloride 88 mmol/L (98-107); GFR African American 6 mL/min; GFR Non-African American 5 mL/min; Glucose 128 mg/dL (74-106); Magnesium 2.6 mg/dL (1.6-2.6)
[2019-12-30 09:29] LABS: Alkaline Phosphatase 81 U/L (45-117); Bilirubin, Total 0.4 mg/dL (0.2-1.0); Total Protein 10.8 g/dL (6.4-8.2)
[2019-12-30] MEDS: NOREPINEPHRINE 8 MG/250ML KIT 250 ML IV SCH (09:30)
[2019-12-30 09:44] LABS: Lactic Acid w/Reflex 3.6 mmol/L (0.4-2.0)
[2019-12-30 09:49] LABS: Sodium 119 mmol/L (136-145)
[2019-12-30 09:50] LABS: Blood Urea Nitrogen 98 mg/dL (7-18); Potassium 8.3 mmol/L (3.5-5.1)
[2019-12-30] MEDS ORDERED: SODIUM ZIRCONIUM CYCL 10 GM PAK PO ONE (10:00)
[2019-12-30] MEDS ORDERED: InsuLIN REG 1unit/0.01ml Soln (100units/ml) IV ONE (10:00)
[2019-12-30] MEDS ORDERED: ALBUTEROL SULF 2.5 MG/0.5ML(0.5%) NEB SOLN NEB ONE (10:00)
[2019-12-30] MEDS ORDERED: SODIUM BICARBONATE 8.4% INJ 50ML SYRINGE IV ONE (10:00)
[2019-12-30] MEDS ORDERED: CALCIUM GLUC 4.65meq/50ml D5AE 50 ML IV ONE (10:00)
[2019-12-30] MEDS ORDERED: SOD CHL 0.45% 1,000 ML IV ONE (10:00)
[2019-12-30] MEDS ORDERED: DEXTROSE (50%) 50ML SYRG IV ONE (10:00)
[2019-12-30] MEDS ORDERED: MORPHINE SULF INJ 2 MG/ML SYRINGE 1ML IV PRN (10:30)
[2019-12-30] MEDS ORDERED: NITROGLYCERIN 0.4 MG SL TAB SL PRN (10:30)
[2019-12-30] MEDS ORDERED: SODIUM BICARBONATE 50ML VIAL 150 ML in SOD CHL 0.45% 1,000 ML IV ONE (10:45)
[2019-12-30] MEDS ORDERED: AMIODARONE HCL 150 MG in D5W 5% 100 ML IV ONE (11:00)
[2019-12-30 11:46] LABS: Magnesium 2.5 mg/dL (1.6-2.6)
[2019-12-30 11:56] LABS: CRP High Sensitivity 3.07 mg/dL (< 0.3); Uric Acid 18.4 mg/dL (3.5-7.2)
[2019-12-30] MEDS: SODIUM BICARBONATE 50ML VIAL 150 ML in D5W 5% 1,000 ML IV SCH ×2 (12:22→22:02)
[2019-12-30 12:34] LABS: Phosphorus 17.8 mg/dL (2.5-4.90)
[2019-12-30] MEDS ORDERED: BUMETANIDE 2.5mg/10ml (0.25 mg/ml) INJ IV ONE (12:45)
[2019-12-30] MEDS: fentaNYL Drip 2500mCg/250mlNS 250 ML IV SCH (13:05)
[2019-12-30 13:11] LABS: BUN/Creatinine Ratio 8.9; Calcium 7.5 mg/dL (8.5-10.1)
[2019-12-30 13:31] LABS: Urine Amorphous Crystal FEW /hpf (None Seen); Urine Bacteria NONE SEEN /hpf (None Seen); Urine Blood 3+ /uL (Negative); Urine Hyaline Cast MANY /lpf (0 - 2); Urine Mucus FEW (None Seen); Urine WBC 107 /hpf (0 - 3)
[2019-12-30 14:41] LABS: Amphetamine Screen, Urine NEGATIVE (NEGATIVE); Barbiturate Scree,Urine NEGATIVE (NEGATIVE); Benzodiazephine Screen, Urine POSITIVE (NEGATIVE); Cannabinoid Screen, Urine NEGATIVE (NEGATIVE); Cocaine Screen, Urine NEGATIVE (NEGATIVE); Opiate Scree,Urine NEGATIVE (NEGATIVE); Phencyclidine Screen, Urine NEGATIVE (NEGATIVE)
[2019-12-31] VITALS (13 sets, daily range): BP systolic 81–132; BP diastolic 14–80
[2019-12-31] MEDS: MIDAZOLAM DRIP 50 mg/50mL 50 ML IV SCH ×3 (02:49→11:26)
[2019-12-31] MEDS: NOREPINEPHRINE 8 MG/250ML KIT 250 ML IV SCH ×2 (06:14→14:35)
[2019-12-31] MEDS ORDERED: DOPamine 1600MCG/ML D5W 250 ML IV ONE (06:19)
[2019-12-31 08:10] LABS: Eosinophils # (auto) 0 uL; Hemoglobin 10.6 g/dL (13.5-17.5); Lymphocytes # (auto) 1.5 uL; Mean Corpuscular Hgb Conc. 33.1 g/dL (32.0-36.0); White Blood Cell 6.3 10^3/uL (4.4-10.8)
[2019-12-31 08:13] LABS: Basophils # (auto) 0.1 uL; Basophils % (auto) 1.2 % (0.0-2.0); Eosinophils % (auto) 0.1 % (0.0-7.0); Hematocrit 32.1 % (41.0-53.0); Lymphocytes % (auto) 23.3 % (10.0-50.0); Mean Corpuscular Hemoglobin 25.1 pg (28.0-32.0); Monocytes # (auto) 0.6 uL; Monocytes % (auto) 9.8 % (0.0-12.0); Neutrophils # (auto) 4.2 uL; Neutrophils % (auto) 65.6 % (37.0-80.0); Nucleated Red Blood Cells % 0.1 %; Platelet Count (auto) 244 10^3/uL (140-450); Red Blood Cells 4.22 10^6/uL (4.5-5.90); Red Cell Distribution Width 15.5 % (11.8-14.3)
[2019-12-31 08:26] LABS: Albumin 2.3 g/dL (3.4-5.0); Potassium 3.4 mmol/L (3.5-5.1)
[2019-12-31 08:30] LABS: BUN/Creatinine Ratio 10.9; Bilirubin, Total 0.5 mg/dL (0.2-1.0); Total Protein 7.3 g/dL (6.4-8.2)
[2019-12-31 08:40] LABS: Calcium 5.2 mg/dL (8.5-10.1)
[2019-12-31] MEDS ORDERED: CALCIUM GLUC 4.65meq/50ml D5AE 50 ML IV ONE (09:15)
[2019-12-31] MEDS ORDERED: FUROSEMIDE 40 MG/4 ML VIAL IV ONE (09:15)
[2019-12-31] MEDS ORDERED: ALLOPURINOL 100 MG TAB PO SCH (10:00)
[2019-12-31] MEDS: ALLOPURINOL 100 MG TAB PO SCH (10:00)
[2019-12-31] MEDS: POTASSIUM CHL 20MEQ/100ML 100 ML IV SCH ×2 (10:32→11:24)
[2019-12-31] MEDS: SODIUM CHLORIDE 0.9% 1,000 ML IV SCH ×2 (10:32→22:26)
[2019-12-31] MEDS ORDERED: CALCIUM CHL 100MG/ML 1,000 MG in D5W 5% 100 ML IV ONE (11:00)
[2019-12-31] MEDS ORDERED: PANTOPRAZOLE 40 MG/10 ML VIAL INJ IV ONE (11:15)
[2019-12-31] MEDS: PROPOFOL 100 ML IV SCH (12:44)
[2019-12-31] MEDS: fentaNYL Drip 2500mCg/250mlNS 250 ML IV SCH (14:38)
[2019-12-31] MEDS: MAGNESIUM SULFATE 1GM/100ML 100 ML IV SCH ×4 (14:47→18:14)
[2019-12-31] MEDS: HEPARIN SODIUM (PORCINE) 5000 UNITS/ML 1ML VIAL SC SCH ×2 (14:55→22:29)
[2019-12-31] MEDS: DOPamine 1600MCG/ML D5W 250 ML IV SCH ×2 (15:25→21:54)
[2019-12-31 17:28] LABS: BUN/Creatinine Ratio 10.9; Calcium 6.2 mg/dL (8.5-10.1); Potassium 4.5 mmol/L (3.5-5.1)
[2019-12-31] MEDS ORDERED: BUMETANIDE 2.5mg/10ml (0.25 mg/ml) INJ IV ONE (18:00)
[2020-01-01] VITALS (99 sets, daily range): BP systolic 78–158; BP diastolic 42–86
[2020-01-01] MEDS: SODIUM CHLORIDE 0.9% 1,000 ML IV SCH ×3 (01:15→17:13)
[2020-01-01 04:49] LABS: Basophils # (auto) 0 uL; Eosinophils # (auto) 0 uL; Lymphocytes # (auto) 1.1 uL; Monocytes # (auto) 0.6 uL; Nucleated Red Blood Cells % 0.1 %; White Blood Cell 6.8 10^3/uL (4.4-10.8)
[2020-01-01 04:51] LABS: Basophils % (auto) 0.5 % (0.0-2.0); Eosinophils % (auto) 0.1 % (0.0-7.0); Hematocrit 29.3 % (41.0-53.0); Hemoglobin 9.6 g/dL (13.5-17.5); Lymphocytes % (auto) 16.5 % (10.0-50.0); Mean Corpuscular Hemoglobin 25.2 pg (28.0-32.0); Mean Corpuscular Hgb Conc. 32.6 g/dL (32.0-36.0); Mean Corpuscular Volume 77.2 fL (80.0-100.0); Monocytes % (auto) 9.1 % (0.0-12.0); Neutrophils # (auto) 5.1 uL; Neutrophils % (auto) 73.8 % (37.0-80.0); Platelet Count (auto) 200 10^3/uL (140-450); Red Blood Cells 3.79 10^6/uL (4.5-5.90); Red Cell Distribution Width 15.4 % (11.8-14.3)
[2020-01-01 05:09] LABS: BUN/Creatinine Ratio 13.7; Potassium 3.7 mmol/L (3.5-5.1)
[2020-01-01 05:16] LABS: Calcium 5.7 mg/dL (8.5-10.1)
[2020-01-01 05:28] LABS: Albumin 2.2 g/dL (3.4-5.0)
[2020-01-01] MEDS: HEPARIN SODIUM (PORCINE) 5000 UNITS/ML 1ML VIAL SC SCH ×3 (05:29→21:46)
[2020-01-01] MEDS: NOREPINEPHRINE 8 MG/250ML KIT 250 ML IV SCH ×3 (06:04→22:00)
[2020-01-01] MEDS: PROPOFOL 100 ML IV SCH (06:12)
[2020-01-01] MEDS: PANTOPRAZOLE 40 MG/10 ML VIAL INJ IV SCH (10:09)
[2020-01-01] MEDS: ALLOPURINOL 100 MG TAB PO SCH (10:09)
[2020-01-01] MEDS ORDERED: CALCIUM CHL 100MG/ML 1,000 MG in D5W 5% 100 ML IV ONE (10:15)
[2020-01-01] MEDS: fentaNYL Drip 2500mCg/250mlNS 250 ML IV SCH (12:40)
[2020-01-01] MEDS ORDERED: BUMETANIDE 1mg/4ml VIAL (0.25mg/ml) IV ONE (12:45)
[2020-01-01] MEDS: DOPamine 1600MCG/ML D5W 250 ML IV SCH (12:59)
[2020-01-01] MEDS: ACETAMINOPHEN 650 mg PER 20 mL UD GT PRN (15:45)
[2020-01-01] MEDS ORDERED: BUMETANIDE 2.5mg/10ml (0.25 mg/ml) INJ IV ONE (18:00)
[2020-01-02] VITALS (100 sets, daily range): BP systolic 87–131; BP diastolic 49–73
[2020-01-02] MEDS: DOPamine 1600MCG/ML D5W 250 ML IV SCH ×2 (04:04→19:09)
[2020-01-02 04:14] LABS: Basophils # (auto) 0 uL; Basophils % (auto) 0.3 % (0.0-2.0); Eosinophils # (auto) 0 uL; Lymphocytes # (auto) 0.7 uL; Mean Corpuscular Hemoglobin 25.4 pg (28.0-32.0); Monocytes # (auto) 0.8 uL; Nucleated Red Blood Cells % 0.1 %
[2020-01-02 04:16] LABS: Eosinophils % (auto) 0.3 % (0.0-7.0); Hematocrit 29.4 % (41.0-53.0); Hemoglobin 9.6 g/dL (13.5-17.5); Lymphocytes % (auto) 10.1 % (10.0-50.0); Mean Corpuscular Hgb Conc. 32.7 g/dL (32.0-36.0); Mean Corpuscular Volume 77.5 fL (80.0-100.0); Monocytes % (auto) 10.5 % (0.0-12.0); Neutrophils # (auto) 5.8 uL; Neutrophils % (auto) 78.8 % (37.0-80.0); Platelet Count (auto) 185 10^3/uL (140-450); Red Cell Distribution Width 15.5 % (11.8-14.3); White Blood Cell 7.3 10^3/uL (4.4-10.8)
[2020-01-02 04:30] LABS: BUN/Creatinine Ratio 20.7; Calcium 7.1 mg/dL (8.5-10.1); Magnesium 1.6 mg/dL (1.6-2.6); Potassium 3.2 mmol/L (3.5-5.1)
[2020-01-02] MEDS: HEPARIN SODIUM (PORCINE) 5000 UNITS/ML 1ML VIAL SC SCH ×3 (05:50→21:54)
[2020-01-02] MEDS: SODIUM CHLORIDE 0.9% 1,000 ML IV SCH ×2 (06:20→07:57)
[2020-01-02] MEDS: POTASSIUM CHL 20MEQ/100ML 100 ML IV SCH ×3 (08:04→12:45)
[2020-01-02] MEDS ORDERED: BUMETANIDE 2.5mg/10ml (0.25 mg/ml) INJ IV ONE (09:30)
[2020-01-02] MEDS: ALLOPURINOL 100 MG TAB PO SCH (10:28)
[2020-01-02] MEDS: PANTOPRAZOLE 40 MG/10 ML VIAL INJ IV SCH (10:28)
[2020-01-02] MEDS: PROPOFOL 100 ML IV SCH (12:17)
[2020-01-02] MEDS: fentaNYL Drip 2500mCg/250mlNS 250 ML IV SCH (12:40)
[2020-01-02] MEDS: MAGNESIUM SULFATE 1GM/100ML 100 ML IV SCH ×4 (12:49→16:58)
[2020-01-02] MEDS ORDERED: BUMETANIDE 2.5mg/10ml (0.25 mg/ml) INJ IV SCH (14:00)
[2020-01-02] MEDS ORDERED: levoFLOXacin 250MG 50 ML IV ONE (14:30)
[2020-01-02] MEDS: ALBUTEROL SULF 2.5 MG/0.5ML(0.5%) NEB SOLN NEB SCH ×2 (19:06→22:46)
[2020-01-02] MEDS: IPRATROPIUM BROM 0.5 MG/2.5ML INH SOL NEB SCH ×2 (19:06→22:46)
[2020-01-02] MEDS: BUMETANIDE 2.5mg/10ml (0.25 mg/ml) INJ IV SCH (21:53)
[2020-01-02] MEDS: methylPREDNISolone SOD SUCC 125 MG/2 ML VL IV SCH (21:53)
[2020-01-02] MEDS ORDERED: POTASSIUM CHL 20MEQ/100ML 100 ML IV ONE (22:00)
[2020-01-03] VITALS (76 sets, daily range): BP systolic 87–143; BP diastolic 53–86
[2020-01-03] MEDS: IPRATROPIUM BROM 0.5 MG/2.5ML INH SOL NEB SCH ×6 (02:06→21:57)
[2020-01-03] MEDS: ALBUTEROL SULF 2.5 MG/0.5ML(0.5%) NEB SOLN NEB SCH ×6 (02:06→21:57)
[2020-01-03 04:31] LABS: Basophils # (auto) 0 uL; Eosinophils # (auto) 0 uL; Monocytes # (auto) 0.6 uL; Red Cell Distribution Width 15.4 % (11.8-14.3); White Blood Cell 7.1 10^3/uL (4.4-10.8)
[2020-01-03 04:34] LABS: Hematocrit 31.8 % (41.0-53.0); Hemoglobin 10.2 g/dL (13.5-17.5); Lymphocytes # (auto) 0.3 uL; Lymphocytes % (auto) 3.6 % (10.0-50.0); Mean Corpuscular Hemoglobin 25.3 pg (28.0-32.0); Mean Corpuscular Hgb Conc. 31.9 g/dL (32.0-36.0); Mean Corpuscular Volume 79.3 fL (80.0-100.0); Monocytes % (auto) 8.4 % (0.0-12.0); Neutrophils # (auto) 6.2 uL; Nucleated Red Blood Cells % 0.1 %; Platelet Count (auto) 206 10^3/uL (140-450); Red Blood Cells 4.02 10^6/uL (4.5-5.90)
[2020-01-03 04:49] LABS: BUN/Creatinine Ratio 23.8; Calcium 8.4 mg/dL (8.5-10.1); Magnesium 2.5 mg/dL (1.6-2.6); Potassium 3.7 mmol/L (3.5-5.1)
[2020-01-03] MEDS: methylPREDNISolone SOD SUCC 125 MG/2 ML VL IV SCH ×2 (06:13→21:16)
[2020-01-03] MEDS: HEPARIN SODIUM (PORCINE) 5000 UNITS/ML 1ML VIAL SC SCH ×3 (06:20→21:17)
[2020-01-03] MEDS: NOREPINEPHRINE 8 MG/250ML KIT 250 ML IV SCH (09:00)
[2020-01-03] MEDS: PANTOPRAZOLE 40 MG/10 ML VIAL INJ IV SCH (10:00)
[2020-01-03] MEDS: levoFLOXacin 250MG 50 ML IV SCH (10:00)
[2020-01-03] MEDS: ALLOPURINOL 100 MG TAB PO SCH (10:00)
[2020-01-03] MEDS: BUMETANIDE 2.5mg/10ml (0.25 mg/ml) INJ IV SCH (10:01)
[2020-01-03] MEDS: DOPamine 1600MCG/ML D5W 250 ML IV SCH (10:14)
[2020-01-03 10:43] LABS: BUN/Creatinine Ratio 22.6; Calcium 8.7 mg/dL (8.5-10.1); Potassium 3.5 mmol/L (3.5-5.1)
[2020-01-03] MEDS: PROPOFOL 100 ML IV SCH (12:17)
[2020-01-03] MEDS: fentaNYL Drip 2500mCg/250mlNS 250 ML IV SCH (12:40)
[2020-01-03] MEDS ORDERED: Jevity 1.2 Cal/Fiber 1 Liter GT SCH (15:30)
[2020-01-03 22:21] LABS: BUN/Creatinine Ratio 19.9; Calcium 9.2 mg/dL (8.5-10.1); Potassium 3.2 mmol/L (3.5-5.1)
[2020-01-04] VITALS (15 sets, daily range): BP systolic 86–110; BP diastolic 51–68
[2020-01-04] MEDS: DOPamine 1600MCG/ML D5W 250 ML IV SCH (01:19)
[2020-01-04] MEDS: IPRATROPIUM BROM 0.5 MG/2.5ML INH SOL NEB SCH ×6 (02:07→22:06)
[2020-01-04] MEDS: ALBUTEROL SULF 2.5 MG/0.5ML(0.5%) NEB SOLN NEB SCH ×6 (02:07→22:06)
[2020-01-04] MEDS: HEPARIN SODIUM (PORCINE) 5000 UNITS/ML 1ML VIAL SC SCH (06:02)
[2020-01-04 07:49] LABS: BUN/Creatinine Ratio 22.3; Calcium 9.4 mg/dL (8.5-10.1); Potassium 3.2 mmol/L (3.5-5.1)
[2020-01-04] MEDS: NOREPINEPHRINE 8 MG/250ML KIT 250 ML IV SCH (09:00)
[2020-01-04] MEDS ORDERED: DEXTROSE (50%) 50ML SYRG IV PRN (09:15)
[2020-01-04] MEDS: ALLOPURINOL 100 MG TAB PO SCH (09:46)
[2020-01-04] MEDS: methylPREDNISolone SOD SUCC 125 MG/2 ML VL IV SCH ×2 (09:48→22:30)
[2020-01-04] MEDS: PANTOPRAZOLE 40 MG/10 ML VIAL INJ IV SCH (09:53)
[2020-01-04] MEDS: levoFLOXacin 250MG 50 ML IV SCH (09:53)
[2020-01-04] MEDS: BUMETANIDE 2.5mg/10ml (0.25 mg/ml) INJ IV SCH ×2 (09:59→10:00)
[2020-01-04] MEDS: InsuLIN REG 1unit/0.01ml Soln (100units/ml) SC SCH ×3 (11:30→22:30)
[2020-01-04] MEDS: POTASSIUM CHL 20MEQ/100ML 100 ML IV SCH ×3 (13:00→16:43)
[2020-01-04] MEDS: ACCU-CHEK COMFORT CURVE STRIP VI SCH ×3 (13:05→23:17)
[2020-01-04] MEDS: SODIUM CHLORIDE 0.9% 1,000 ML IV SCH (13:05)
[2020-01-04] MEDS: ZOLPIDEM TARTRATE 5 MG TAB PO PRN (23:18)
[2020-01-04 23:32] LABS: BUN/Creatinine Ratio 21.4; Potassium 3.9 mmol/L (3.5-5.1)
[2020-01-05] MEDS: IPRATROPIUM BROM 0.5 MG/2.5ML INH SOL NEB SCH ×6 (02:00→22:13)
[2020-01-05] MEDS: ALBUTEROL SULF 2.5 MG/0.5ML(0.5%) NEB SOLN NEB SCH ×6 (02:00→22:13)
[2020-01-05 05:00] VITALS: BP 117/72
[2020-01-05 05:13] LABS: Basophils # (auto) 0 uL; Eosinophils # (auto) 0 uL; Hemoglobin 9.5 g/dL (13.5-17.5); Lymphocytes # (auto) 0.4 uL; Neutrophils # (auto) 6.4 uL; Red Cell Distribution Width 15.7 % (11.8-14.3); White Blood Cell 7.9 10^3/uL (4.4-10.8)
[2020-01-05 05:17] LABS: Hematocrit 29.9 % (41.0-53.0); Lymphocytes % (auto) 4.5 % (10.0-50.0); Mean Corpuscular Hemoglobin 25.1 pg (28.0-32.0); Mean Corpuscular Hgb Conc. 31.7 g/dL (32.0-36.0); Mean Corpuscular Volume 79.2 fL (80.0-100.0); Monocytes # (auto) 1.1 uL; Neutrophils % (auto) 81.5 % (37.0-80.0); Nucleated Red Blood Cells % 0.2 %; Platelet Count (auto) 233 10^3/uL (140-450); Red Blood Cells 3.77 10^6/uL (4.5-5.90)
[2020-01-05 05:30] LABS: Calcium 8.8 mg/dL (8.5-10.1); Potassium 3.8 mmol/L (3.5-5.1)
[2020-01-05 05:33] LABS: BUN/Creatinine Ratio 22.6
[2020-01-05] MEDS: SODIUM CHLORIDE 0.9% 1,000 ML IV SCH (06:36)
[2020-01-05] MEDS: ACCU-CHEK COMFORT CURVE STRIP VI SCH ×4 (06:37→22:09)
[2020-01-05] MEDS: InsuLIN REG 1unit/0.01ml Soln (100units/ml) SC SCH ×4 (06:37→22:00)
[2020-01-05 09:00] VITALS: BP 128/73
[2020-01-05] MEDS: ALLOPURINOL 100 MG TAB PO SCH (09:54)
[2020-01-05] MEDS: levoFLOXacin 250MG 50 ML IV SCH (09:55)
[2020-01-05] MEDS: methylPREDNISolone SOD SUCC 125 MG/2 ML VL IV SCH (09:55)
[2020-01-05] MEDS: PANTOPRAZOLE 40 MG/10 ML VIAL INJ IV SCH (09:55)
[2020-01-05 11:36] LABS: BUN/Creatinine Ratio 24.5; Calcium 8.8 mg/dL (8.5-10.1); Potassium 3.9 mmol/L (3.5-5.1)
[2020-01-05 13:00] VITALS: BP 109/68
[2020-01-05] MEDS ORDERED: POTASSIUM CHL 20 Meq TABLET PO ONE (16:00)
[2020-01-05] MEDS: ZOLPIDEM TARTRATE 5 MG TAB PO PRN (22:12)
[2020-01-06] MEDS: ALBUTEROL SULF 2.5 MG/0.5ML(0.5%) NEB SOLN NEB SCH ×6 (02:04→22:29)
[2020-01-06] MEDS: IPRATROPIUM BROM 0.5 MG/2.5ML INH SOL NEB SCH ×6 (02:04→22:29)
[2020-01-06] MEDS: SODIUM CHLORIDE 0.9% 1,000 ML IV SCH ×2 (02:45→22:47)
[2020-01-06 05:43] VITALS: BP 130/75
[2020-01-06] MEDS: ACCU-CHEK COMFORT CURVE STRIP VI SCH ×4 (06:26→21:45)
[2020-01-06] MEDS: InsuLIN REG 1unit/0.01ml Soln (100units/ml) SC SCH ×4 (06:27→21:47)
[2020-01-06 09:00] VITALS: BP 109/72
[2020-01-06] MEDS: levoFLOXacin 250MG 50 ML IV SCH (09:40)
[2020-01-06] MEDS: methylPREDNISolone SOD SUCC 40 MG/ML VL IV SCH (09:41)
[2020-01-06] MEDS: PANTOPRAZOLE 40 MG/10 ML VIAL INJ IV SCH (09:41)
[2020-01-06] MEDS: ALLOPURINOL 100 MG TAB PO SCH (09:41)
[2020-01-06] MEDS: ACETAMINOPHEN 650 mg PER 20 mL UD GT PRN (10:12)
[2020-01-06 10:46] LABS: Potassium 4.2 mmol/L (3.5-5.1)
[2020-01-06 10:51] LABS: BUN/Creatinine Ratio 26.9; Calcium 8.3 mg/dL (8.5-10.1)
[2020-01-06] MEDS: SEVELAMER 800 MG TAB PO SCH ×2 (12:16→18:31)
[2020-01-06 13:00] VITALS: BP 109/66
[2020-01-06] MEDS ORDERED: HYDROcodone-ACET 5/325MG TAB PO PRN (13:45)
[2020-01-06 17:00] VITALS: BP 117/73
[2020-01-06] MEDS: HYDROcodone-ACET 5/325MG TAB PO PRN (21:43)
[2020-01-06 22:00] VITALS: BP 127/68
[2020-01-06 22:26] LABS: BUN/Creatinine Ratio 26.4; Calcium 8.1 mg/dL (8.5-10.1)
[2020-01-06] MEDS: ZOLPIDEM TARTRATE 5 MG TAB PO PRN (22:51)
[2020-01-07 01:58] VITALS: BP 127/68
[2020-01-07] MEDS: IPRATROPIUM BROM 0.5 MG/2.5ML INH SOL NEB SCH ×6 (02:14→22:49)
[2020-01-07] MEDS: ALBUTEROL SULF 2.5 MG/0.5ML(0.5%) NEB SOLN NEB SCH ×6 (02:14→22:48)
[2020-01-07] MEDS: HYDROcodone-ACET 5/325MG TAB PO PRN ×3 (04:15→22:13)
[2020-01-07 05:00] VITALS: BP 135/85
[2020-01-07] MEDS: InsuLIN REG 1unit/0.01ml Soln (100units/ml) SC SCH ×4 (06:31→22:00)
[2020-01-07] MEDS: ACCU-CHEK COMFORT CURVE STRIP VI SCH ×4 (06:31→22:12)
[2020-01-07 07:17] LABS: Albumin 2.1 g/dL (3.4-5.0); Potassium 4.8 mmol/L (3.5-5.1)
[2020-01-07 07:21] LABS: BUN/Creatinine Ratio 27.8; Bilirubin, Total 0.4 mg/dL (0.2-1.0); Total Protein 6.2 g/dL (6.4-8.2)
[2020-01-07 09:00] VITALS: BP 128/78
[2020-01-07] MEDS: SEVELAMER 800 MG TAB PO SCH (09:01)
[2020-01-07] MEDS: PANTOPRAZOLE 40 MG/10 ML VIAL INJ IV SCH (09:50)
[2020-01-07] MEDS: ALLOPURINOL 100 MG TAB PO SCH (09:50)
[2020-01-07] MEDS: levoFLOXacin 250MG 50 ML IV SCH (09:50)
[2020-01-07] MEDS: methylPREDNISolone SOD SUCC 40 MG/ML VL IV SCH (09:50)
[2020-01-07] MEDS ORDERED: FUROSEMIDE 40 MG/4 ML VIAL IV SCH (11:00)
[2020-01-07 13:00] VITALS: BP 136/77
[2020-01-07 17:00] VITALS: BP 128/70
[2020-01-07 22:00] VITALS: BP 112/56
[2020-01-07] MEDS: ZOLPIDEM TARTRATE 5 MG TAB PO PRN (23:14)
[2020-01-08] MEDS: IPRATROPIUM BROM 0.5 MG/2.5ML INH SOL NEB SCH ×6 (02:14→22:08)
[2020-01-08] MEDS: ALBUTEROL SULF 2.5 MG/0.5ML(0.5%) NEB SOLN NEB SCH ×6 (02:14→22:08)
[2020-01-08] MEDS: HYDROcodone-ACET 5/325MG TAB PO PRN ×3 (03:44→20:04)
[2020-01-08 05:00] VITALS: BP 105/83
[2020-01-08] MEDS: InsuLIN REG 1unit/0.01ml Soln (100units/ml) SC SCH ×4 (06:59→21:12)
[2020-01-08] MEDS: ACCU-CHEK COMFORT CURVE STRIP VI SCH ×4 (07:00→21:12)
[2020-01-08] MEDS: ALLOPURINOL 100 MG TAB PO SCH (08:59)
[2020-01-08] MEDS: levoFLOXacin 250MG 50 ML IV SCH (08:59)
[2020-01-08] MEDS: PANTOPRAZOLE 40 MG/10 ML VIAL INJ IV SCH (08:59)
[2020-01-08 09:00] VITALS: BP 119/78
[2020-01-08 09:55] LABS: BUN/Creatinine Ratio 22.9; Calcium 7.5 mg/dL (8.5-10.1); Potassium 4.1 mmol/L (3.5-5.1)
[2020-01-08 09:57] LABS: Bilirubin, Total 0.3 mg/dL (0.2-1.0); Total Protein 5.7 g/dL (6.4-8.2)
[2020-01-08] MEDS ORDERED: predniSONE 20 MG TAB PO SCH (10:00)
[2020-01-08 12:08] LABS: Phosphorus 2.5 mg/dL (2.5-4.90)
[2020-01-08 13:00] VITALS: BP 98/47
[2020-01-08 13:17] LABS: Uric Acid 5.2 mg/dL (3.5-7.2)
[2020-01-08 17:00] VITALS: BP 107/67
[2020-01-08] MEDS: ZOLPIDEM TARTRATE 5 MG TAB PO PRN (21:32)
[2020-01-08 22:00] VITALS: BP 105/60
[2020-01-09] MEDS: HYDROcodone-ACET 5/325MG TAB PO PRN ×2 (01:55→08:44)
[2020-01-09 02:00] VITALS: BP 99/53
[2020-01-09] MEDS: IPRATROPIUM BROM 0.5 MG/2.5ML INH SOL NEB SCH ×2 (02:09→06:50)
[2020-01-09] MEDS: ALBUTEROL SULF 2.5 MG/0.5ML(0.5%) NEB SOLN NEB SCH ×2 (02:09→06:50)
[2020-01-09 05:00] VITALS: BP 119/71
[2020-01-09] MEDS: InsuLIN REG 1unit/0.01ml Soln (100units/ml) SC SCH (06:15)
[2020-01-09] MEDS: ACCU-CHEK COMFORT CURVE STRIP VI SCH (06:15)
[2020-01-09 08:59] VITALS: BP 117/68
== END 2020-01-09 09:30 | disposition home health service (06) | DRG 871 ==
LOC: EDBD 06:29 → ER 06:29 → TELE 06:30 → ICU WEST 12-31 23:24 → TELE-CENTR 01-04 12:00
PROVIDERS: ADMIT Nurse Practitioner Acute Care; ATTEND Internal Medicine
PROC: 5A1945Z Respiratory Ventilation, 24-96 Consecutive Hours (ICD-10-PCS; principal; 2019-12-30)
PROC: 0BH17EZ Insertion of Endotracheal Airway into Trachea, Via Natural or Artificial Opening (ICD-10-PCS; 2019-12-30)
PROC: 5A09357 Assistance with Respiratory Ventilation, Less than 24 Consecutive Hours, Continuous Positive Airway Pressure (ICD-10-PCS; 2019-12-30)
PROC: 02HV33Z Insertion of Infusion Device into Superior Vena Cava, Percutaneous Approach (ICD-10-PCS; 2019-12-30)
PROC: 5A09357 Assistance with Respiratory Ventilation, Less than 24 Consecutive Hours, Continuous Positive Airway Pressure (ICD-10-PCS; 2020-01-02)
PROC: 5A09357 Assistance with Respiratory Ventilation, Less than 24 Consecutive Hours, Continuous Positive Airway Pressure (ICD-10-PCS; 2020-01-03)
DX: A41.9 Sepsis, unspecified organism (principal); I46.9 Cardiac arrest, cause unspecified; G93.41 Metabolic encephalopathy; J96.21 Acute and chronic respiratory failure with hypoxia; J15.212 Pneumonia due to Methicillin resistant Staphylococcus aureus; I50.30 Unspecified diastolic (congestive) heart failure; N17.9 Acute kidney failure, unspecified; E87.2 Acidosis; E87.1 Hypo-osmolality and hyponatremia; E44.0 Moderate protein-calorie malnutrition; J44.1 Chronic obstructive pulmonary disease with (acute) exacerbation; I13.0 Hypertensive heart and chronic kidney disease with heart failure and stage 1 through stage 4 chronic kidney disease, or unspecified chronic kidney disease; I27.20 Pulmonary hypertension, unspecified; E87.5 Hyperkalemia; E83.39 Other disorders of phosphorus metabolism; R41.82 Altered mental status, unspecified; N18.3 Chronic kidney disease, stage 3 (moderate); E83.51 Hypocalcemia; E87.6 Hypokalemia; J44.9 Chronic obstructive pulmonary disease, unspecified; J45.909 Unspecified asthma, uncomplicated; Z93.3 Colostomy status; Z68.26 Body mass index [BMI] 26.0-26.9, adult
CPT/HCPCS: 31500; 36415; 36556; 36600; 51702; 70450; 71045; 71250; 74176; 80048; 80053; 80307; 81001; 82040; 82306; 82550; 82805; 82962; 83605; 83735; 83880; 83970; 84100; 84484; 84550; 85025; 85610; 85730; 86141; 87040; 87070; 87081; 87205; 87804; 92507; 92610; 93005; 93306; 94002; 94003; 94640; 94644; 94660; 96374; 96375; 96376; 97110; 97116; 97163; 97530; 99291; C9113; G0378; J0330; J0610; J1815; J2250; J2543; J2704; J3480; J7060